=== PATIENT | male | born 1960 | race Caucasian/White ===

== ENCOUNTER 2023-01-18 10:00 | Outpatient (CLI) | payer MEDICARE, MEDICAID, SELFPAY ==
--- NOTE | 2023-01-18 11:45 | CRLHL7_ITS ---
For Patients: As a result of the Cures Act, medical imaging exams and procedure reports are released immediately into your electronic medical record. You may view this report before your referring provider. If you have questions, please contact your health care provider. Indication: PRESSURE INJURY OF OTHER SITE, STAGE 3 5TH TOE Technique: Right foot 3 views Comparison: None Findings: Plantar calcaneal spur is present. Osteopenia noted. There is no fracture. No cortical destruction or periostitis. Mild degenerative changes at the 1st MTP joint. Impression: No evidence of acute fracture or osteomyelitis. Dictated by Dank Anders MD @ 01/18/2023 12:32:16 PM (Electronically Signed)
== END 2023-01-18 10:01 | disposition home or self-care (01) ==
PROVIDERS: PCP Internal Medicine; Visit Provider Nurse Practitioner Family
DX: L89.893 Pressure ulcer of other site, stage 3 (principal); Z93.1 Gastrostomy status; R53.1 Weakness
CPT/HCPCS: 73630; 97597; 99203

== ENCOUNTER 2023-01-25 13:02 | Outpatient (CLI) | payer MEDICARE, MEDICAID, SELFPAY | END 2023-01-25 13:03 | disposition home or self-care (01) | PROVIDERS: PCP Internal Medicine; Visit Provider Nurse Practitioner Family | DX: L89.893 Pressure ulcer of other site, stage 3 (principal) | CPT/HCPCS: 97597 ==

== ENCOUNTER 2023-02-01 11:28 | Outpatient (CLI) | payer MEDICARE, MEDICAID, SELFPAY | END 2023-02-01 11:29 | disposition home or self-care (01) | LOC: WOUND 11:29 | PROVIDERS: PCP Internal Medicine; Visit Provider Nurse Practitioner Family | DX: L89.893 Pressure ulcer of other site, stage 3 (principal); R53.1 Weakness; Z93.1 Gastrostomy status | CPT/HCPCS: 97597 ==

== ENCOUNTER 2023-02-08 11:13 | Outpatient (CLI) | payer MEDICARE, MEDICAID, SELFPAY | END 2023-02-08 11:14 | disposition home or self-care (01) | LOC: WOUND 11:13 | PROVIDERS: PCP Internal Medicine; Visit Provider Nurse Practitioner Family | DX: L89.893 Pressure ulcer of other site, stage 3 (principal); R53.1 Weakness; Z93.1 Gastrostomy status | CPT/HCPCS: 11055; 99213 ==

== ENCOUNTER 2023-05-03 12:38 | Outpatient (CLI) | payer MEDICARE, MEDICAID, SELFPAY | END 2023-05-03 12:39 | disposition home or self-care (01) | LOC: WOUND 12:38 | PROVIDERS: PCP Internal Medicine; Visit Provider Nurse Practitioner Family | DX: L89.893 Pressure ulcer of other site, stage 3 (principal); R53.1 Weakness; Z93.1 Gastrostomy status; Z99.3 Dependence on wheelchair | CPT/HCPCS: 97597; 99212 ==

== ENCOUNTER 2023-05-17 12:39 | Outpatient (CLI) | payer MEDICARE, MEDICAID, SELFPAY | END 2023-05-17 12:40 | disposition home or self-care (01) | LOC: WOUND 12:39 | PROVIDERS: PCP Internal Medicine; Visit Provider Nurse Practitioner Family | DX: L89.893 Pressure ulcer of other site, stage 3 (principal); Z93.1 Gastrostomy status; R53.1 Weakness | CPT/HCPCS: 11042 ==

== ENCOUNTER 2023-05-24 12:30 | Outpatient (CLI) | payer MEDICARE, MEDICAID, SELFPAY | END 2023-05-24 12:31 | disposition home or self-care (01) | LOC: WOUND 12:30 | PROVIDERS: PCP Internal Medicine; Visit Provider Nurse Practitioner Family | DX: L89.893 Pressure ulcer of other site, stage 3 (principal); Z93.1 Gastrostomy status | CPT/HCPCS: 97597 ==

== ENCOUNTER 2023-06-07 12:45 | Outpatient (CLI) | payer MEDICARE, MEDICAID, SELFPAY | END 2023-06-07 12:46 | disposition home or self-care (01) | LOC: WOUND 12:45 | PROVIDERS: PCP Internal Medicine; Visit Provider Physician Assistant | DX: L89.893 Pressure ulcer of other site, stage 3 (principal) | CPT/HCPCS: 87070; 87186; 97597; G0463 ==

== ENCOUNTER 2023-06-14 12:53 | Outpatient (CLI) | payer MEDICARE, MEDICAID, SELFPAY | END 2023-06-14 12:54 | disposition home or self-care (01) | LOC: WOUND 12:53 | PROVIDERS: PCP Internal Medicine; Visit Provider Nurse Practitioner Family | DX: L89.893 Pressure ulcer of other site, stage 3 (principal); S91.114A Laceration without foreign body of right lesser toe(s) without damage to nail, initial encounter | CPT/HCPCS: 97597; G0463 ==

== ENCOUNTER 2023-06-21 12:39 | Outpatient (CLI) | payer MEDICARE, MEDICAID, SELFPAY | END 2023-06-21 12:40 | disposition home or self-care (01) | LOC: WOUND 12:40 | PROVIDERS: PCP Internal Medicine; Visit Provider Nurse Practitioner Family | DX: L89.893 Pressure ulcer of other site, stage 3 (principal) | CPT/HCPCS: 11042 ==

== ENCOUNTER 2023-06-28 12:38 | Outpatient (CLI) | payer MEDICARE, MEDICAID, SELFPAY | END 2023-06-28 12:39 | disposition home or self-care (01) | LOC: WOUND 12:38 | PROVIDERS: PCP Internal Medicine; Visit Provider Nurse Practitioner Family | DX: L89.893 Pressure ulcer of other site, stage 3 (principal); S91.114A Laceration without foreign body of right lesser toe(s) without damage to nail, initial encounter | CPT/HCPCS: 97597 ==

== ENCOUNTER 2023-07-05 12:45 | Outpatient (CLI) | payer MEDICARE, MEDICAID, SELFPAY | END 2023-07-05 12:46 | disposition home or self-care (01) | LOC: WOUND 12:46 | PROVIDERS: PCP Internal Medicine; Visit Provider Nurse Practitioner Family | DX: L89.893 Pressure ulcer of other site, stage 3 (principal); Z93.1 Gastrostomy status | CPT/HCPCS: 97597 ==

== ENCOUNTER 2023-07-12 12:50 | Outpatient (CLI) | payer MEDICARE, MEDICAID, SELFPAY | END 2023-07-12 12:51 | disposition home or self-care (01) | LOC: WOUND 12:50 | PROVIDERS: PCP Internal Medicine; Visit Provider Nurse Practitioner Family | DX: L89.893 Pressure ulcer of other site, stage 3 (principal); S91.114A Laceration without foreign body of right lesser toe(s) without damage to nail, initial encounter | CPT/HCPCS: G0463 ==

== ENCOUNTER 2023-07-26 12:22 | Outpatient (CLI) | payer MEDICARE, MEDICAID, SELFPAY | END 2023-07-26 12:23 | disposition home or self-care (01) | LOC: WOUND 12:22 | PROVIDERS: PCP Internal Medicine; Visit Provider Nurse Practitioner Family | DX: Z51.89 Encounter for other specified aftercare (principal) | CPT/HCPCS: G0463 ==